=== PATIENT | male | born 1945 | race Caucasian/White ===

== ENCOUNTER → 2020-02-02 06:45 | Outpatient (CLI) | payer OTHER, SELFPAY ==
[2020-02-02 08:30] LABS: Alanine Aminotransferase 18 IU/L (<50); Albumin 4.2 g/dL (3.5-5.0); Albumin Globulin Ratio 1.4 (1.0-2.8); Alkaline Phosphatase 77 U/L (38-126); Aspartate Aminotransferase 20 IU/L (17-59); Bilirubin Total 0.6 mg/dL (0.2-1.3); Blood Urea Nitrogen 15 mg/dL (9-20); Calcium 9.5 mg/dL (8.4-10.2); Carbon Dioxide 29 mmol/L (22-32); Chloride 109 mmol/L (98-107); Cholesterol 173 mg/dL (140-199); Estimated Glomerular Filt Rate > 60.0 mL/min (>60); Globulin 2.9 g/dL (1.7-4.1); Glucose 115 mg/dL (80-110); HDL Cholesterol 58 mg/dL (40-60); HEMOLYSIS < 15 (0-50); LDL Cholesterol Calculated 98 mg/dL (<100); Potassium 4.6 mmol/L (3.4-5.1); Sodium 141 mmol/L (137-145); Total Protein 7.1 g/dL (6.3-8.2); Triglycerides 84 mg/dL (35-150)
[2020-02-02 08:36] LABS: Creatinine Urine Random 80.9 mg/dL
[2020-02-02 08:40] LABS: Microalbumi Creatinin Ratio Ur 7.4 ug/mg CR (<30); Microalbumin Urine Random 0.6 mg/dL (0-1.6)
[2020-02-02 09:10] LABS: Thyroid Stimulating Hormone 0.086 uIU/mL (0.47-4.68)
== END ==
PROVIDERS: Family Provider Family Medicine; PCP Nurse Practitioner; Referring Provider Nurse Practitioner; Visit Provider Nurse Practitioner
DX: E11.9 Type 2 diabetes mellitus without complications (principal); E78.5 Hyperlipidemia, unspecified; Z79.899 Other long term (current) drug therapy; E03.9 Hypothyroidism, unspecified; I10 Essential (primary) hypertension
CPT/HCPCS: 36415; 80053; 80061; 82043; 82570; 83036; 84443

== ENCOUNTER 2020-03-15 09:21 | Emergency (ER) | payer OTHER, SELFPAY ==
[2020-03-15 09:33] VITALS: BP 151/79; PULSE 80; RESP 16; TEMP 36.7; O2SAT 98; BMI 27.7
--- NOTE | 2020-03-15 09:56 | ED.ABDPAIN ---
HPI - Abdominal Pain General Chief Complaint: Abdominal Pain Stated Complaint: left testicular entrapment today Time Seen by Provider: 03/15/20 09:30 Source: patient Mode of arrival: Ambulatory Limitations: no limitations History of Present Illness HPI narrative: 74-year-old gentleman 5 years post left inguinal hernia repair, hypertension, low thyroid, hyperlipidemia and type 2 diabetes presents after having left inguinal area pain. He was fixing breakfast, went to have a bowel movement had a strain quite a bit and noticed there was some fullness in the left inguinal area. Over the next half an hour it continued to worsen pain aguila it felt like a ?egg?. He laid down on his back to the pelvic tilt massaged the area and the ?egg? reduce back inside nicely. He is completely pain-free now Related Data Home Medications Medication Instructions Recorded Confirmed aspirin 81 mg tablet,delayed 81 mg PO DAILY 02/01/20 02/01/20 release Previous Rx's Medication Instructions Recorded lisinopril 10 mg tablet 10 mg PO DAILY #90 tab 02/01/20 levothyroxine 125 mcg tablet 125 mcg PO DAILY #90 tab 02/02/20 levothyroxine 100 mcg tablet 100 mcg PO DAILY #90 tab 02/13/20 polyethylene glycol 3350 [Miralax] 17 gram PO DAILY #30 each 03/15/20 Allergies Allergy/AdvReac Type Severity Reaction Status Date / Time Penicillins [PENICILLINS] AdvReac Severe MY RIGHT Unverified 02/01/20 14:24 KNEE FROZE hydrocodone [HYDROCODONE] AdvReac Unknown I FEEL Unverified 02/01/20 14:24 LIKE SHIT Review of Systems Review of Systems Narrative: No fevers, cough, abdominal pain, bloody stool, vomiting or diarrhea Slight increasing constipation over the last 6 months. 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 (Acute) Surgical History H/O right inguinal hernia repair (Inactive) Social History Smoking Status: Current every day smoker Smoking Status: Current every day smoker tobacco type: pipe alcohol intake frequency: 3 or more drinks per day Substance Use Type: marijuana and hallucinogens Exam Narrative Exam Narrative: General: Alert appropriate in no acute distress Respiratory: Able to speak in full sentences, no obvious respiratory distress Skin: No obvious rashes, warm and dry Neurologic: Grossly intact no obvious asymmetries or abnormalities Psych, appropriate insight and affect, cooperative General: Normal, uncircumcised penis. Testicles are unremarkable. Minor defect noted in the left inguinal canal with no obvious hernia appreciated with Valsalva Initial Vital Signs Initial Vital Signs: Vital Signs Temperature 98.0 F 03/15/20 09:33 Pulse Rate 80 03/15/20 09:33 Respiratory Rate 16 03/15/20 09:33 Blood Pressure 151/79 H 03/15/20 09:33 Pulse Oximetry 98 03/15/20 09:33 Course Vital Signs Vital signs: Vital Signs - 8 hr 03/15/20 09:33 Temperature 98.0 F Pulse Rate 80 Respiratory Rate 16 Blood Pressure 151/79 H Pulse Oximetry 98 MDM - Abdominal Pain Medical Records Attestation: I reviewed the patient's medical records. [facility] Narrative Medical decision making narrative: Recurrent left inguinal hernia reduced by patient. Discussed treatment for constipation to avoid this draining that caused the recurrent hernia as well as when to return to the emergency department and follow-up with general surgery to discuss need for and repair of recurrent left inguinal hernia without strangulation. Discharge Plan Departure Patient Disposition: Home Clinical Impression: Inguinal hernia Qualifiers: Obstruction and gangrene presence: without obstruction or gangrene Laterality: unilateral Recurrence: recurrent Qualified Code(s): K40.91 - Unilateral inguinal hernia, without obstruction or gangrene, recurrent Discharge Date/Time: 03/15/20 10:10 Instructions: Groin Hernia -- Adult Activity Restrictions/Additional Instructions: Thank you for coming in today It sounds like you had a small recurrent severe left inguinal hernia and you reduced at perfectly by yourself at home. Should recur, please try the same maneuvers to reduce it at home again. Consider trying a cap full of MiraLax daily to help prevent constipation as the straining seems to exacerbate your symptoms. If you continue to have pain or the hernia continues to bother you please follow-up with our general surgeons to consider surgical repair. Prescriptions: New polyethylene glycol 3350 [Miralax] 17 gram powder in packet 17 gram PO DAILY Qty: 30 RF: 6 No Action levothyroxine 125 mcg tablet 125 mcg PO DAILY Qty: 90 RF: 1 levothyroxine 100 mcg tablet 100 mcg PO DAILY Qty: 90 RF: 1 aspirin 81 mg tablet,delayed release (DR/EC) 81 mg PO DAILY RF: 0 lisinopril 10 mg tablet 10 mg PO DAILY Qty: 90 RF: 3 Referrals: Yaneth Romo ARNP [Primary Care Provider] - Nikunj Saunders MD [Physician] -
== END 2020-03-15 10:10 | disposition home or self-care (01) ==
PROVIDERS: Emergency Provider Emergency Medicine; Family Provider Family Medicine; PCP Nurse Practitioner
DX: K40.91 Unilateral inguinal hernia, without obstruction or gangrene, recurrent (principal)
CPT/HCPCS: 99281

== ENCOUNTER → 2020-11-27 09:20 | Outpatient (CLI) | payer OTHER, SELFPAY ==
--- NOTE | 2020-11-27 | DI.NM.S_ITS ---
PROCEDURE: CA BONE SCAN WHOLE BODY RADIOPHARMACEUTICAL: 19.4 mCi Tc-99m MDP IV. INDICATIONS: Malignant neoplasm of prostate TECHNIQUE: Delayed whole-body scintigrams were obtained approximately 3-4 hours after intravenous injection of radiotracer. Anterior and posterior views were acquired from vertex to feet. Additional left and right oblique views of the pelvis were obtained. COMPARISON: [facility], CT, CT CHEST ABDOMEN PELVIS WITH CONTRAST, 02/20/2020, 9:35. [facility], [place], CA BONE SCAN WHOLE BODY, 08/17/2019, 14:15. FINDINGS: There is interval development of focal area of intensely increased uptake involving left side of T12 vertebral body concerning for metastatic disease in this area. Previously noted foci of intensely increased uptake involving right anterior 9th through 10th ribs are no longer seen consistent with healed fractures. Previously described focus of abnormal increased uptake involving left inferior sacrum is again seen and is unchanged. Mildly increased uptake throughout right femur is again seen not significantly changed from prior study. Osteoarthritic changes are again noted in bilateral shoulder joints, hip joints, knee joints and ankle joints. There is prior right total knee arthroplasty. Focal increased uptake involving possible left patella is seen. IMPRESSION: 1. Interval development of focal area of intensely increased uptake at left side of T12 vertebral body concerning for bony metastasis in this area. 2. Stable focus of intensely increased uptake involving left inferior sacrum just lateral to the midline concerning for focal metastatic disease unchanged from prior study. 3. Likely degenerative changes and postsurgical changes as above. 4. Stable chronic abnormal appearance of right femoral shaft which may represent old healed injury, suggest clinical and possible radiographic correlation. Dictated by: Gaston Haines M.D. on 11/27/2020 at 15:52 Approved by: Gaston Haines M.D. on 11/27/2020 at 16:03
== END ==
PROVIDERS: Family Provider Family Medicine; PCP Nurse Practitioner; Referring Provider Internal Medicine Hematology & Oncology; Visit Provider Internal Medicine Hematology & Oncology
DX: C61 Malignant neoplasm of prostate (principal)
CPT/HCPCS: 78306; A9503

== ENCOUNTER 2023-01-14 11:56 | Emergency (ER) | payer OTHER, SELFPAY ==
[2023-01-14 12:24] VITALS: BP 159/83; PULSE 68; RESP 18; TEMP 37.1; O2SAT 99; BMI 27.7
--- NOTE | 2023-01-14 13:08 | PC.NURSE ---
patient positive for COVID. Patient reports feeling slightly off. Denies SOB or fever. Speaking in full sentences.
--- NOTE | 2023-01-14 13:13 | ED.URI ---
HPI - URI/Sore Throat <AMBROSIO Lawton - Last Filed: 01/14/23 14:00> General Chief Complaint: Upper Respiratory Symptoms Stated Complaint: covid+ Time Seen by Provider: 01/14/23 12:48 Source: patient Mode of arrival: Ambulatory History of Present Illness HPI Narrative: This is a 77-year-old gentleman who started feeling ill this morning after he was exposed to COVID 1 week ago and took a test and came back positive Related Data Home Medications Medication Instructions Recorded Confirmed aspirin 81 mg tablet,delayed 81 mg PO DAILY 02/01/20 10/18/20 release enzalutamide 80 mg tablet (Xtandi) 160 mg PO DAILY 07/16/21 leuprolide (3 month) 22.5 mg (3 22.5 mg SUBCUT Q12W 07/16/21 month) subcutaneous syringe (Eligard) leuprolide (4 month) 30 mg (4 30 mg IM [id number] 07/16/21 month) intramuscular syringe kit (Lupron Depot) Previous Rx's Medication Instructions Recorded lisinopril 10 mg tablet 10 mg PO DAILY #90 tabs 02/01/20 levothyroxine 125 mcg tablet 125 mcg PO DAILY #90 tabs 02/02/20 levothyroxine 100 mcg tablet 100 mcg PO DAILY #90 tabs 02/13/20 polyethylene glycol 3350 17 gram 17 gram PO DAILY #30 ea 03/15/20 oral powder packet (Miralax) miconazole nitrate 2 % topical 1 applic topical BID tinea 7 days 10/18/20 cream (Antifungal (miconazole)) #15 grams nirmatrelvir 300 mg (150 mg See Rx Instructions PO .COMPLEX 01/14/23 x2)-ritonavir 100 mg tablet,dose #30 ea pack (Paxlovid) Allergies Allergy/AdvReac Type Severity Reaction Status Date / Time Penicillins [PENICILLINS] AdvReac Severe MY RIGHT Unverified 10/18/20 15:53 KNEE FROZE hydrocodone [HYDROCODONE] AdvReac Unknown I FEEL Unverified 10/18/20 15:53 LIKE SHIT Review of Systems <AMBROSIO Lawton - Last Filed: 01/14/23 14:00> Review of Systems ROS Unobtainable: All systems reviewed & are unremarkable except as noted in HPI and below Patient History <AMBROSIO Lawton - Last Filed: 01/14/23 14:00> Medical History Diabetes type 2, controlled Hyperlipidemia Hypertension Hypothyroid Metastatic castration-resistant adenocarcinoma of prostate Other residential (current) drug therapy Surgical History H/O right inguinal hernia repair Hx of prostatectomy Social History Smoking Status: Current every day smoker Smoking Status: Current every day smoker tobacco type: pipe alcohol intake frequency: a few times a week Substance Use Type: marijuana and hallucinogens Exam <AMBROSIO Lawton - Last Filed: 01/14/23 14:00> Narrative Exam Narrative: Reviewed vitals signs and nursing notes. General: Pleasant, sitting upright, in no acute distress, well groomed, afebrile HEENT: symmetrical facial expressions, moist mucous membranes, neck is supple CV: regular rate and rhythm, S1-S2, no [place] extremities Respiratory: normal work of breathing, without tachypnea or hypoxia. GI: abdomen soft, nondistended, without CVA tenderness bilaterally. MSK: moves all extremities, no weakness, normal tone, ambulatory without deficit Skin: brisk capillary refill, without rash or wound Neuro: clear speech and normal cognition, A&O x3, GCS 15, no focal motor or sensation deficits Initial Vital Signs Initial Vital Signs: Vital Signs Temperature 98.7 F 01/14/23 12:24 Pulse Rate 68 01/14/23 12:24 Respiratory Rate 18 01/14/23 12:24 Blood Pressure 159/83 H 01/14/23 12:24 Pulse Oximetry 99 01/14/23 12:24 Oxygen Delivery Method Room Air 01/14/23 12:24 <Tam Atkinson MD - Last Filed: 01/20/23 12:05> Initial Vital Signs Initial Vital Signs: Vital Signs Temperature 98.7 F 01/14/23 12:24 Pulse Rate 68 01/14/23 12:24 Respiratory Rate 18 01/14/23 12:24 Blood Pressure 159/83 H 01/14/23 12:24 Pulse Oximetry 99 01/14/23 12:24 Oxygen Delivery Method Room Air 01/14/23 12:24 Course <AMBROSIO Lawton - Last Filed: 01/14/23 14:00> Vital Signs Vital signs: Vital Signs - 8 hr 01/14/23 12:24 Temperature 98.7 F Pulse Rate 68 Respiratory Rate 18 Blood Pressure 159/83 H Pulse Oximetry 99 Oxygen Delivery Method Room Air <Tam Atkinson MD - Last Filed: 01/20/23 12:05> Vital Signs Vital signs: Vital Signs - 8 hr 01/14/23 12:24 Temperature 98.7 F Pulse Rate 68 Respiratory Rate 18 Blood Pressure 159/83 H Pulse Oximetry 99 Oxygen Delivery Method Room Air MDM - URI/Sore Throat <AMBROSIO Lawton - Last Filed: 01/14/23 14:00> MDM Narrative Medical decision making narrative: Chief Complaint: day 1 of COVID symptoms Multiple etiologies for patient's complaint considered including, but not limited to: acute viral illness, COVID-19 with other viral illness, dehydration I have independently reviewed the patient's vital signs and nursing notes as well as prior records if available. Course of, Care: patient denies any severe symptoms, denies shortness of breath, chest pain, palpitations, or any other symptoms other than feeling mild dizziness with position changes and walking. He presents for a prescription of Paxlovid, states that n he took a COVID test today and it was positive, his symptoms started today but he was exposed last week. He takes Xtandi for his prostate but has had a prostatectomy so he will hold this medication while taking Paxlovid as it interacts. No other medications of interaction, he is not anticoagulated, denies any other symptoms of severity. Understands return emergency department for worsening symptoms, shortness of breath, chest pain or inability to tolerate symptoms at home. Patient has normal renal function with a GFR over 60 most recent lab work Social considerations that may affect disposition: none Questions are addressed and there is agreement with the plan and for follow-up. I consulted with the ED attending physician Dr. Atkinson as needed for higher level of care considerations and they were available for discussion and recommendations regarding plan of care and diagnostic testing. Patient is appropriate for outpatient management. Discharge Plan Departure Patient Disposition: Home Clinical Impression: COVID-19 Instructions: COVID-19 Activity Restrictions/Additional Instructions: *You have been diagnosed with COVID illness. Please finish your medications, please return to the emergency department if you have any new symptoms of concern. Stay hydrated, avoid immobility, rest when you need to. I hope you feel better soon, it was a pleasure to meet you and hear about your other half. this medication will potentially interact with Xtandi so please hold this medication while you are taking Paxlovid. this medication will hopefully reduce the severity of illness and length of illness but there are associated recurrence rates of COVID illness. Hopefully your symptoms are not severe. Please come back to the hospital if they are. *What to do: *Please continue to take your regular medications as directed. [ x] New medication prescriptions sent to your pharmacy: [[place] ] [ ] New medication written as a paper prescription [ ] No new medications given *Please call and schedule follow up with your primary care provider in 2-3 days, at least for an update. Let them know you were seen in the Emergency Department for the above problem. We will electronically transmit a record of today's note if your PCP or specialist is in our system. *If you do not have a primary care provider please contact [phone] to establish care with one of the [facility] primary care providers. *Return to the Emergency Department for worsening symptoms, inability to keep liquids down, fever greater than 101F, chills, or other concerning symptom. Prescriptions: New Paxlovid 300 mg (150 mg x 2)-100 mg tablets,dose pack See Rx Instructions .ROUTE .COMPLEX Qty: 30 0RF Rx Instructions: take TWO 150 mg tablets of nirmatrelvir with ONE 100 mg tablet of ritonavir twice daily for 5 days No Action miconazole nitrate [Antifungal (miconazole)] 2 % cream 1 applic topical BID 7 Days Qty: 15 1RF levothyroxine 125 mcg tablet 125 mcg PO DAILY Qty: 90 1RF Rx Instructions: Take 125mcg with 100mcg tab daily for total of 225mcg/day on an empty stomach 30 mins prior to eating levothyroxine 100 mcg tablet 100 mcg PO DAILY Qty: 90 1RF Rx Instructions: Take 100mcg tab with 125mg tab for total of 225mcg on an empty stomach daily 30 mins prior to eating. Lupron Depot (4 month) 30 mg syringe kit 30 mg IM [id number] Eligard (3 month) 22.5 mg syringe 22.5 mg SUBCUT Q12W Xtandi 80 mg tablet 160 mg PO DAILY aspirin 81 mg tablet,delayed release (DR/EC) 81 mg PO DAILY lisinopril 10 mg tablet 10 mg PO DAILY Qty: 90 3RF Rx Instructions: Take 1 tab by mouth daily for hypertension polyethylene glycol 3350 [Miralax] 17 gram powder in packet 17 gram PO DAILY Qty: 30 6RF Referrals: Miscellaneous,Doctor, [Primary Care Provider] - Stand Alone Forms: Patient Portal/API <Tam Atkinson MD - Last Filed: 01/20/23 12:05> Cosign ED Attending Cosignature Attestation: I was immediately available in the department for consultation. ?This documentation has been reviewed and I agree with assessment and plan. Supervised by Tam Atkinson MD
== END 2023-01-14 13:15 | disposition home or self-care (01) ==
PROVIDERS: Emergency Provider Nurse Practitioner Critical Care Medicine; Family Provider Family Medicine
DX: U07.1 COVID-19 (principal)
CPT/HCPCS: 99281

== ENCOUNTER 2024-08-15 09:55 | Emergency (ER) | payer OTHER, SELFPAY ==
[2024-08-15] VITALS (10 sets, daily range): BP systolic 145–185; BP diastolic 85–96; PULSE 83–92; RESP 16; TEMP 36.9; O2SAT 92–97; BMI 29.0
--- NOTE | 2024-08-15 11:01 | EKG_ITS ---
[address] [address] Test Date: 2024-08-15 Pat Name: Suzanne Blount Department: Room: Gender: Male Lsw: EDWARDO : 1945 Requested By: Order Number: [id number] Reading MD: Santana Wong Measurements Intervals [place] Rate: 85 P: 67 CA: 208 QRS: -21 QRSD: 86 T: 57 QT: 392 QTc: 466 Interpretive Statements Sinus rhythm with premature supraventricular complexes Moderate voltage criteria for LVH, may be normal variant ( R in aVL , Gavin product ) Inferior infarct , age undetermined Cannot rule out Anterior infarct , age undetermined Electronically Signed On 08-15-2024 17:10:37 PST by Santana Wong
[2024-08-15 11:05] LABS: Add Manual Diff / Slide Review NO; Basophils Absolute Auto 100 /uL (0-100); Basophils Percent Auto 0.9 % (0-2); Eosinophils Absolute Auto 0 /uL (0-450); Eosinophils Percent Auto 0.2 % (2-4); Hematocrit 43.9 % (41-53); Hemoglobin 15.3 g/dL (13.5-17.5); Lymphocytes Absolute Auto 1000 /uL (1100-4500); Lymphocytes Percent Auto 11.6 % (25-40); Mean Corpuscular HGB Conc 34.9 % (30-36); Mean Corpuscular Hemoglobin 29.7 PG (26-34); Monocytes Absolute Auto 600 /uL (0-900); Monocytes Percent Auto 7.1 % (3-14); Neutrophils Absolute Auto 6800 /uL (1500-7000); Neutrophils Percent Auto 80.2 % (50-75); Platelet Count 139 X10^3/uL (150-400); Red Blood Cell Count 5.17 X10^6/uL (4.5-5.9); Red Cell Distribution Width 13.5 % (11.6-14.8); White Blood Cell Count 8.4 X10^3/uL (4.5-11.0)
[2024-08-15 11:16] LABS: Alanine Aminotransferase 19 IU/L (<50); Albumin 4.7 g/dL (3.5-5.0); Albumin Globulin Ratio 1.4 (1.0-2.8); Alkaline Phosphatase 496 U/L (38-126); Aspartate Aminotransferase 35 IU/L (17-59); BUN Creatinine Ratio 14.7 (6-22); Bilirubin Total 1.1 mg/dL (0.2-1.3); Blood Urea Nitrogen 10 mg/dL (9-20); Calcium 9.5 mg/dL (8.4-10.2); Carbon Dioxide 21 mmol/L (22-32); Chloride 97 mmol/L (98-107); Estimated Glomerular Filt Rate > 60 mL/min (>60); Globulin 3.4 g/dL (1.7-4.1); Glucose 184 mg/dL (80-110); HEMOLYSIS 22 (0-50); Lipase 87 U/L (23-300); Potassium 4.3 mmol/L (3.4-5.1); Sodium 130 mmol/L (137-145); Total Protein 8.1 g/dL (6.3-8.2)
[2024-08-15 12:08] LABS: Appearance Urine UA CLEAR; Bilirubin Urine UA NEGATIVE (NEGATIVE); Color Urine UA YELLOW; Glucose Urine UA NEGATIVE (Negative); Ketones Urine UA NEGATIVE (NEGATIVE); Leukocyte Esterase Urine UA NEGATIVE (NEGATIVE); Nitrite Urine UA NEGATIVE (Negative); Occult Blood Urine UA 1+ (Negative); Protein Urine UA NEGATIVE (Negative); Urobilinogen Urine UA 0.2 E.U./dL (0.2); pH Urine UA 5.5 (4.5-8.0)
[2024-08-15 12:09] LABS: Urine Volume 10mL (spun)
[2024-08-15 12:12] LABS: Bacteria Urine None Seen; Culture Indicated Urine Cult Not Indicated; RBC Urine 1-5/HPF (0-5/HPF); Squamous Epithelial Cell Urine None Seen (0-5/HPF); WBC Urine None Seen (0-5/HPF)
--- NOTE | 2024-08-15 12:25 | ED.ABDPAIN ---
HPI - Abdominal Pain General Chief Complaint: Abdominal Pain Stated Complaint: feeling terrible/constipation/ Time Seen by Provider: 08/15/24 12:03 Source: patient, RN notes reviewed and old records reviewed Limitations: no limitations History of Present Illness HPI narrative: 79-year-old male with history of prostate cancer treated with a prostatectomy followed by [facility] which patient has stopped several years ago. 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 Patient presents today with complaint of abdominal pain that started about 3:00 a.m. this morning has been persistent. Had nausea and vomiting but mostly nausea and dry heaves. States he did have some diarrhea. No black or bloody stools. He he thinks he maybe mildly distended. Denies any chest pain or shortness of breath. No syncope. Has had some sweats. States he was has a history of night sweats but this has been more frequent. He has been afebrile. Patient denies any new urinary symptoms. Patient states he does take lisinopril and levothyroxine daily for home medications. Reports allergies to hydrocodone. History of tobacco has quit, occasional alcohol, denies recreational drugs regularly. [facility] was following with Dr. Johnson for oncology until several years ago. Related Data Home Medications Medication Instructions Recorded Confirmed aspirin 81 mg tablet,delayed 81 mg PO DAILY 02/01/20 10/18/20 release enzalutamide 80 mg tablet (Xtandi) 160 mg PO DAILY 07/16/21 leuprolide (3 month) 22.5 mg (3 22.5 mg SUBCUT Q12W 07/16/21 month) subcutaneous syringe (Eligard) leuprolide (4 month) 30 mg (4 30 mg IM [id number] 07/16/21 month) intramuscular syringe kit (Lupron Depot) Previous Rx's Medication Instructions Recorded lisinopril 10 mg tablet 10 mg PO DAILY #90 tabs 02/01/20 levothyroxine 125 mcg tablet 125 mcg PO DAILY #90 tabs 02/02/20 levothyroxine 100 mcg tablet 100 mcg PO DAILY #90 tabs 02/13/20 polyethylene glycol 3350 17 gram 17 gram PO DAILY #30 ea 03/15/20 oral powder packet (Miralax) miconazole nitrate 2 % topical 1 applic topical BID tinea 7 days 04/29/21 cream (Antifungal (miconazole)) #15 grams nirmatrelvir 300 mg (150 mg See Rx Instructions PO .COMPLEX 01/14/23 x2)-ritonavir 100 mg tablet,dose #30 ea pack (Paxlovid) ondansetron 4 mg disintegrating 4 mg PO Q6H PRN nausea and 08/15/24 tablet vomiting #10 tabs oxycodone 5 mg tablet 5 mg PO QID PRN pain #10 tabs 08/15/24 Allergies Allergy/AdvReac Type Severity Reaction Status Date / Time Penicillins [PENICILLINS] AdvReac Severe MY RIGHT Unverified 10/18/20 15:53 KNEE FROZE hydrocodone [HYDROCODONE] AdvReac Unknown I FEEL Unverified 10/18/20 15:53 LIKE SHIT Review of Systems Review of Systems ROS Unobtainable: All systems reviewed & are unremarkable except as noted in HPI and below Patient History Medical History Metastatic castration-resistant adenocarcinoma of prostate 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 HEENT: Head normocephalic, atraumatic, EOMI, pupils reactive, face symmetric, moist mucous membranes NECK: Supple, full range of motion, patient has fullness of the left neck, skin overlying appears normal. CARDIOVASCULAR: Regular rate and rhythm with 3/6 systolic ejection murmur best at the left sternal border, no rubs or gallops RESPIRATORY: Breath sounds equal bilaterally, no wheezes rales or rhonchi. ABDOMEN: Soft, mildly distended. Nontender. Normoactive bowel sounds all 4 quadrants. No guarding or rebound, rigidity, no mass : No CVA tenderness EXTREMITIES: Normal range of motion, no clubbing or edema. Neurovascularly intact NEUROLOGICAL: Cranial nerves II through XII grossly intact. Moving all extremities SKIN: Warm, dry, no petechiae, no rashes or lesions. Initial Vital Signs Initial Vital Signs: Vital Signs Temperature 98.4 F 08/15/24 10:11 Pulse Rate 84 08/15/24 10:11 Respiratory Rate 16 08/15/24 10:11 Blood Pressure 145/85 H 08/15/24 10:11 Pulse Oximetry 97 08/15/24 10:11 Oxygen Delivery Method Room Air 08/15/24 10:11 Course Orders Ordered: ED Orders 08/15/24 10:16 EKG-12 Lead Stat 08/15/24 10:56 Complete Blood Count AUTO DIFF Stat Comprehensive Metabolic Panel Stat Lipase Stat 08/15/24 11:59 Urinalysis and Microscopic Stat 08/15/24 13:06 CT angio chest abdomen pelvis Stat Discontinued Medications Sodium Chloride (Normal Saline 0.9%) 1,000 mls @ 1,000 mls/hr IV BOLUS ONE Stop: 08/15/24 14:05 Last Infusion: 08/15/24 15:22 Dose: Infused Documented By: Admin: 08/15/24 13:28 Dose: 1,000 mls/hr Documented By: JIN Morphine Sulfate (Morphine 4 Mg/Ml Inj) 4 mg IV NOW ONE Stop: 08/15/24 13:07 Last Admin: 08/15/24 13:28 Dose: 4 mg Documented By: JIN Ondansetron HCl (Ondansetron 4 Mg/2 Ml Inj) 4 mg IV NOW PRN PRN Reason: Nausea And Vomiting Last Admin: 08/15/24 13:29 Dose: 4 mg Documented By: MPO Ondansetron HCl (Ondansetron 4 Mg Odt) 4 mg PO NOW PRN PRN Reason: Nausea And Vomiting Vital Signs Vital signs: Vital Signs - 8 hr 08/15/24 12:10 08/15/24 12:30 08/15/24 12:30 Pulse Rate 89 85 Blood Pressure 181/87 H Pulse Oximetry 95 95 08/15/24 13:00 08/15/24 13:00 08/15/24 13:29 Pulse Rate 92 H Blood Pressure 172/95 H 185/96 H Pulse Oximetry 96 08/15/24 13:29 08/15/24 13:30 08/15/24 14:00 Pulse Rate 89 89 83 Blood Pressure Pulse Oximetry 97 94 92 08/15/24 14:30 08/15/24 14:55 08/15/24 15:00 Pulse Rate 86 86 88 Blood Pressure 174/93 H Pulse Oximetry 94 94 94 MDM - Abdominal Pain Lab Data 08/15/24 10:56 08/15/24 10:56 Labs: Lab Results 08/15/24 08/15/24 Range/Units 10:56 11:59 WBC 8.4 (4.5-11.0) X10^3/uL RBC 5.17 (4.5-5.9) X10^6/uL Hgb 15.3 (13.5-17.5) g/dL Hct 43.9 (41-53) % MCV 85.0 (80-100) fL MCH 29.7 (26-34) PG MCHC 34.9 (30-36) % RDW 13.5 (11.6-14.8) % Plt Count 139 L (150-400) X10^3/uL Neut % (Auto) 80.2 H (50-75) % Lymph % (Auto) 11.6 L (25-40) % [place] % (Auto) 7.1 (3-14) % Eos % (Auto) 0.2 L (2-4) % Baso % (Auto) 0.9 (0-2) % Neut # (Auto) 6800 (1441-4049) /uL Lymph # (Auto) 1000 L (1064-5974) /uL [place] # (Auto) 600 (0-900) /uL Eos # (Auto) 0 (0-450) /uL Baso # (Auto) 100 (0-100) /uL Sodium 130 L (137-145) mmol/L Potassium 4.3 (3.4-5.1) mmol/L Chloride 97 L (98-107) mmol/L Carbon Dioxide 21 L (22-32) mmol/L BUN 10 (9-20) mg/dL Creatinine 0.68 (0.66-1.25) mg/dL Estimated GFR > 60 (>60) mL/min BUN/Creatinine Ratio 14.7 (6-22) Glucose 184 H (80-110) mg/dL Calcium 9.5 (8.4-10.2) mg/dL Total Bilirubin 1.1 (0.2-1.3) mg/dL AST 35 (17-59) IU/L ALT 19 (<50) IU/L Alkaline Phosphatase 496 H (38-126) U/L Total Protein 8.1 (6.3-8.2) g/dL Albumin 4.7 (3.5-5.0) g/dL Globulin 3.4 (1.7-4.1) g/dL Albumin/Globulin Ratio 1.4 (1.0-2.8) Lipase 87 (23-300) U/L Urine Color Yellow Urine Appearance Clear Urine pH 5.5 (4.5-8.0) Ur Specific [place] 1.010 (1.000-1.035) Urine Protein Negative (Negative) Urine Glucose (UA) Negative (Negative) g/dL Urine Ketones Negative (NEGATIVE) Urine Occult Blood 1+ H (Negative) Urine Nitrate Negative (Negative) Urine Bilirubin Negative (NEGATIVE) Urine Urobilinogen 0.2 (0.2) E.U./dL Ur Leukocyte Esterase Negative (NEGATIVE) Urine RBC 1-5/hpf (0-5/HPF) Urine WBC None seen (0-5/HPF) Ur Squamous Epith Cells None seen (0-5/HPF) Urine Bacteria None seen (None) Ur Culture Indicated? Cult not indicated Vol Urine Centrifuged 10ml (spun) ECG Data Attestation: I personally reviewed and interpreted this ECG as follows: Interpretation: Sinus rhythm with premature ventricular complexes, rate 85 MO 2 8 QRS 86 QTC 466, no acute ST changes. [facility] Narrative Medical decision making narrative: 79-year-old male comes in with a complaint of abdominal pain but also some pelvic pain on his hips bilaterally. Loss from vomiting diaphoresis. Has a history of prior aneurysm. Has a history of prostate cancer but stopped Lupron several years ago also has known cancer in his left neck that is squamous cell has not been following for several years. Labs show white count 8.4 hemoglobin of 15 platelets of 139, chemistry shows a sodium of 130 chloride 97 CO2 of 21 potassium of 4.3 creatinine of 0.68 glucose of 184 alk-phos of 496, AST ALT bilirubin are appropriate lipase is 87. EKG shows sinus rhythm premature complexes. UA shows 1+ blood 1-5 RBCs otherwise negative CTA chest/abd/pelvis mild ascending thoracic aortic aneurysm seen measuring up to 4.1 cm in largest diameter no descending thoracic aortic aneurysm mild distal infrarenal abdominal aortic aneurysm measures up to 3.2 x 3.5 cm AP and transverse just proximal to bifurcation no aortic dissection, [id number] atherosclerotic calcifications noted scattered throughout thoracic abdominal aorta. Extensive metastatic disease throughout the osseous structure suggestive extensive bony metastases secondary to the prostate cancer no definite acute pathologic fracture stable nodular densities right lower lobe described above and show no abnormal uptake on previous PET scan continued CT chest follow up. No acute inflammatory process seen in the abdomen or pelvis no free fluid or free air. Other chronic findings as above not significantly changed from previous PET-CT. Patient has known aneurysm, was unsure of the last size on imaging. Does not appear to have active dissection. Also has metastatic changes to the bone which could also be causing his pain has he also describes pain in the pelvic hip area as well as his back in the thoracic and lumbar region as well as bony pelvis. Patient had pain medication, fluids and antiemetics in the department. Reviewed findings with the patient's family he was not aware if he had a aneurysm of his lower abdomen but states it has been at least a year and a half to 2 years since he has had imaging. Also was not aware of the bony metastases. He has follow up in place already with Oncology in August. Patient has not seen by Cardiology but not by vascular [facility]. discussed that this should be followed closely. Patient is unsure if he would wish to have his aneurysm repaired and is contemplating. Patient feels improved would like to return home we will give a short course of antinausea and pain medication but with strict return precautions. Discharge Plan Departure Patient Disposition: Home Clinical Impression: Hyponatremia, Metastatic cancer to bone, Aneurysm Activity Restrictions/Additional Instructions: Your workup today does show abdominal aortic aneurysm that is 3.5 cm as well as a thoracic aortic aneurysm that is 4.1cm, they should be followed regularly if you think that you would be interested in having them repaired. It is also noted that you have metastatic changes throughout the bony pelvis as well as the thoracic and lumbar spine this is likely the source of your back and hip pain. You can take Zofran 1 tablet every 6 hours as needed for nausea. You can take acetaminophen up to a 1000 mg every 6 hours as needed for pain. If inadequate you can take oxycodone 1-2 tablets every 6 hours as needed. This medication can make you sleepy do not drive, perform hazardous activities or make any major decisions while taking it. This medication will make you constipated please take a stool softener once to twice daily until stools are soft and regular. Prescription sent to [facility] in [place]. Please return for fevers, rapidly worsening abdominal back or flank pain, persistent vomiting, lightheadedness or passing out, black or bloody stools, changing abdominal back or flank pain or other new or concerning changes. Prescriptions: New oxycodone 5 mg tablet 5 mg PO QID PRN (Reason: pain) Qty: 10 0RF ondansetron 4 mg tablet,disintegrating 4 mg PO Q6H PRN (Reason: nausea and vomiting) Qty: 10 0RF No Action miconazole nitrate [Antifungal (miconazole)] 2 % cream 1 applic topical BID 7 Days Qty: 15 1RF levothyroxine 125 mcg tablet 125 mcg PO DAILY Qty: 90 1RF Rx Instructions: Take 125mcg with 100mcg tab daily for total of 225mcg/day on an empty stomach 30 mins prior to eating levothyroxine 100 mcg tablet 100 mcg PO DAILY Qty: 90 1RF Rx Instructions: Take 100mcg tab with 125mg tab for total of 225mcg on an empty stomach daily 30 mins prior to eating. Lupron Depot (4 month) 30 mg syringe kit 30 mg IM [id number] Eligard (3 month) 22.5 mg syringe 22.5 mg SUBCUT Q12W Xtandi 80 mg tablet 160 mg PO DAILY aspirin 81 mg tablet,delayed release (DR/EC) 81 mg PO DAILY lisinopril 10 mg tablet 10 mg PO DAILY Qty: 90 3RF Rx Instructions: Take 1 tab by mouth daily for hypertension polyethylene glycol 3350 [Miralax] 17 gram powder in packet 17 gram PO DAILY Qty: 30 6RF Paxlovid 300 mg (150 mg x 2)-100 mg tablets,dose pack See Rx Instructions .ROUTE .COMPLEX Qty: 30 0RF Rx Instructions: take TWO 150 mg tablets of nirmatrelvir with ONE 100 mg tablet of ritonavir twice daily for 5 days Referrals: Miscellaneous,Doctor, MD [Primary Care Provider] - Stand Alone Forms: Patient Portal/API/Survey
--- NOTE | 2024-08-15 13:06 | DI.CT.S_ITS ---
PROCEDURE: CT ANGIO CHEST ABDOMEN PELVIS INDICATIONS: abd pain, hx aneurysm, neck cancer, prostate cancer TECHNIQUE: Precontrast 5 mm thick sections acquired from the lung apices to the iliac crests. After the administration of intravenous contrast, 2.5 mm thick sections again acquired from the lung apices to the iliac crests. Maximum intensity projection (MIP) oblique sagittal and coronal reformats were then acquired. For radiation dose reduction, the following was used: automated exposure control. COMPARISON: [place], [place], PET NECK TO MID THIGH, 12/04/2021, 9:14. [facility] Ultrasound, [place], US AORTA RETROPERITONEAL LIMITED, 01/01/2023, 7:54. FINDINGS: Image quality: Diagnostic. AORTA: Mild ascending thoracic aortic aneurysm is seen measures up to 4.1 cm in largest AP diameter series 5, image 87. No descending thoracic aortic aneurysm. Mild distal infrarenal abdominal aortic aneurysm measures up to 3.2 x 3.5 cm in AP and transverse diameter just proximal to bifurcation series 5 image 225. No aortic dissection. [id number] atherosclerotic calcifications are noted scattered throughout thoracic and abdominal aorta. CHEST: Lower Neck: No enlarged lymph nodes. Thyroid: No thyroid nodules which require sonographic evaluation. Axillae: No enlarged lymph nodes. Chest Wall: Unremarkable. Lungs and Pleura: No pneumothorax or pleural effusions. 4 mm solid nodule is noted in posterior lateral right lower lobe series 6, image 202 unchanged from prior study. Scattered scarring/atelectasis in bilateral lower lobes are seen. Pleural based nodular density in posterior medial aspect of right lower lobe is again seen measures 1.5 x 1.1 cm in size and show no abnormal increased uptake on previous PET-CT scan. No consolidation or suspicious nodules. Heart: Heart size is normal. No pericardial effusion. Thoracic Vessels: Pulmonary arteries demonstrate normal size. Mediastinum and [place]: No enlarged lymph nodes. Esophagus: No wall thickening. No hiatal hernia. ABDOMEN: Liver: No solid mass. Gallbladder: No radiopaque gallstones or wall thickening. Biliary ducts: No biliary dilation. Pancreas: No ductal dilation. Spleen: Mild splenomegaly. Large peripherally calcified cystic structure is again seen involving superior aspect of spleen unchanged from prior study. No abnormal uptake is noted in this structure on previous PET-CT scan. Adrenal Glands: No adrenal nodules. Kidneys and Ureters: No hydronephrosis. No solid mass. Simple appearing bilateral renal cysts are again seen. No complex renal cystic lesion which requires follow up. Stomach and Bowel: Normal colonic caliber, without significant wall thickening. Colonic diverticulosis without CT evidence of acute diverticulitis. No abscess collection. Peritoneum: No abnormal intraperitoneal fluid. No free air. Ventral Wall: No hernia. Abdominal Nodes: No retroperitoneal or mesenteric adenopathy by size criteria. Vessels: Inferior vena cava is normal in size. PELVIS: Pelvic Organs: There is likely prior prostatectomy. Bladder: Unremarkable. Pelvic Nodes: No enlarged lymph nodes. Miscellaneous: Left inguinal hernia is seen containing fat only. Bones: Extensive sclerotic lesions are seen scattered throughout bony pelvis and throughout visualized thoracic and lumbar spine vertebral bodies. Numerous sclerotic lesions also noted throughout visualized bilateral ribs and in bilateral shoulder joints. Similar lesions also seen within sternum. No definite acute vertebral body compression fracture. IMPRESSION: 1. Mild fusiform infrarenal abdominal aortic aneurysm measures up to 3.2 x 3.5 cm in diameter. Mild ascending thoracic aortic aneurysm measures up to 4.1 cm in largest AP diameter. [id number] atherosclerotic disease throughout aorta. No aortic dissection. 2. Extensive metastatic disease throughout visualized osseous structures suggestive of extensive bony metastasis secondary to patient's known prostate cancer. No definite acute pathologic fracture. 3. Stable nodular densities in right lower lobe as described above and show no abnormal uptake on previous PET-CT scan. Continued CT chest follow-up is recommended. 4. No acute inflammatory process is seen in abdomen or pelvis. No free fluid or free air. 5. Other chronic findings as above, not significantly changed from previous PET-CT scan. Dictated by: Gaston Haines M.D. on 08/15/2024 at 13:39 Approved by: Gaston Haines M.D. on 08/15/2024 at 14:03
[2024-08-15] MEDS: MORPHINE 4 MG/ML INJ IV (13:28)
[2024-08-15] MEDS: SODIUM CHLORIDE 0.9% 1,000 ML 1000 ML IV (13:28)
[2024-08-15] MEDS: ONDANSETRON 4 MG/2 ML INJ IV (13:29)
== END 2024-08-15 15:24 | disposition home or self-care (01) ==
PROVIDERS: Emergency Provider Emergency Medicine; Family Provider Family Medicine
DX: I71.40 Abdominal aortic aneurysm, without rupture, unspecified (principal); E87.1 Hypo-osmolality and hyponatremia; C79.51 Secondary malignant neoplasm of bone; Z85.46 Personal history of malignant neoplasm of prostate; Z85.828 Personal history of other malignant neoplasm of skin; R11.2 Nausea with vomiting, unspecified
CPT/HCPCS: 36415; 71275; 74174; 80053; 81001; 83690; 85025; 93005; 96361; 96374; 96375; 99284; 99285; J2270; J2405; Q9967